=== PATIENT | female | born 1990 | race Caucasian/White ===

== ENCOUNTER 2019-12-14 15:41 | Emergency (ER) | payer SELFPAY ==
--- OUTSIDE RECORDS SUMMARY | 2019-12-14 16:14 | XMS REPORT | Continuity of Care Document ---
:1990 Author Organization [facility] t Address [address] [place] [address] Care Team Providers Name Role Phone Provider, Temp Attending Clinician Unavailable Problems This patient has no known problems. Allergies, Adverse Reactions, Alerts This patient has no known allergies or adverse reactions. Medications This patient has no known medications. Procedures This patient has no known procedures. Encounters Start End Encounter Admission Attending Care Care Encounter Source Date/Time Date/Time Type Type Clinicians Facility Department ID 2019-08-25 2019-08-25 Office Provider, [facility] [id number] 15:14:12 15:51:27 Visit Eugenio SILO TENDER [id number] [facility] [id number] MATERNAL [id number] & CHILD [address] [place] [address] Results This patient has no known results.
[2019-12-14 16:51] LABS: Urine Blood NEGATIVE (NEG); Urine Glucose NEGATIVE (NEG); Urine Protein NEGATIVE (NEG); Urine Specific Gravity 1.025 (1.005-1.030); Urine pH 7.5 (5.0-7.0)
[2019-12-14] MEDS ORDERED: ONDANSETRON 4 MG (ODT) TAB ONE (16:53)
[2019-12-14] MEDS ORDERED: HYDROCODONE/APAP 5/325 MG TAB ONE (17:06)
[2019-12-14] MEDS ORDERED: IBUPROFEN 400 MG TAB ONE (17:07)
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
--- NOTE | 2019-12-14 17:33 | RAD REPORT ---
EXAM DESCRIPTION: RAD - Hand Right 3 View - 12/14/2019 5:24 pm CLINICAL HISTORY: PAIN COMPARISON: No comparisons FINDINGS: No fracture is identified. There is no dislocation or periosteal reaction noted. Patient is flexed at the fifth DIP joint with very slight hyperextension of the PIP joint. Fifth MCP joint is normal and distal fifth metacarpal is intact. No evidence for bone avulsion along the dorsal margin of the right fifth digit. IMPRESSION: No acute or subacute fracture changes involving the fifth digit right hand. Right fifth DIP joint persistent flexion and slight hyperextension at the PIP joint could indicate ex tensor tendon injury. No evidence for dorsal margin bone avulsion.
[2019-12-16 08:56] VITALS: TEMP 99.3
[2019-12-16 08:57] VITALS: BP 123/85; O2SAT 98
== END 2019-12-14 17:36 | disposition home or self-care (01) ==
LOC: ER 15:41
DX: M79.641 Pain in right hand (principal); M79.644 Pain in right finger(s); Z88.5 Allergy status to narcotic agent
CPT/HCPCS: 81003; 81025; 99284